=== PATIENT | female | born 2000 | race Caucasian/White ===

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

== ENCOUNTER 2020-05-05 19:16 | Emergency (ER) | payer BC, SELFPAY ==
[2020-05-05 19:29] VITALS: BP 145/91; PULSE 90; RESP 19; TEMP 36.9; O2SAT 98; BMI 40.1
--- NOTE | 2020-05-05 19:38 | HMH.EDUTC ---
[facility] [place] Disposition Clinical Impression: Exposure to COVID-19 virus Disposition: Home, Self-Care Condition on Discharge: Good Instructions: Preventing the Spread of Coronavirus Discharge Instructions Additional Instructions: You have been tested for COVID19. Please isolate yourself until results have been received. Referrals: Amy Whitten [Primary Care Provider] - Time of Disposition: 19:40 Medical Decision Making - Abdon Inquiry Pt receiving controlled substance: No Vital Signs: 05/05/20 19:29 Temperature 98.5 F Temperature Source Oral Pulse Rate [Right Brachial] 90 Respiratory Rate 19 Blood Pressure [Right Arm] 145/91 H Blood Pressure Mean [Right Arm] 109 Blood Pressure Source [Right Arm] Automatic Cuff Blood Pressure Position [Right Arm] Sitting 02 Sat by Pulse Oximetry 98 Oxygen Delivery Method Room Air Orders (Tests/Meds): ORDERS Category Date Time Status Coronavirus 19 Swab (OUTPT) Routine Lab 05/05/20 19:30 Received [facility] HPI - General Stated complaint: Covid test, not feeling well Time Seen by Provider: 05/05/20 19:38 Mode of Arrival: Ambulatory Source of Information: Patient Limitations: No Limitations Description of Symptoms (Recalled from Triage Doc. by RN): PATIENT C/O SORE THROAT, HEADACHE, NAUSEA, AND LOSS OF TASTE/SMELL X 1 WEEK HEENT Symptoms (Recalled from RN notes): Yes Resp Symptoms (Recalled from RN notes): No Skin Symptoms (Recalled from RN notes): No MS Symptoms (Recalled from RN notes): No Functional Status (Recalled from RN notes): WNL - History of Present Illness Provider Complaint: Sore throat, headache, cough, malaise, body aches X 4-5 days. Loss of taste and smell today. 2 friends tested positive for COVID19 earlier today. Onset (ago): day(s) (5) Location: head Relieving factors: none Exacerbating factors: none Associated symptoms: denies other symptoms Treatments prior to arrival: none - Related Data Home Medications Medication Instructions Recorded Confirmed citalopram 40 mg tablet PO 90 Days #90 tab 10/30/18 02/24/19 hydroxyzine pamoate 50 mg capsule PO 90 Days #360 cap 10/30/18 02/24/19 metformin 500 mg tablet,extended PO 90 Days #90 tab 10/30/18 02/24/19 release 24 hr norethindrone 1 mg-ethin. PO 84 Days #84 cap 10/30/18 02/24/19 estradiol 20 mcg (24)-iron 75 mg (4) capsule Allergies Allergy/AdvReac Type Severity Reaction Status Date / Time No Known Allergies Allergy Verified 05/05/20 19:35 - Worker's Comp Is this a Worker's Comp case?: No H History - Hepatitis A Screen Drug use history?: No High risk sexual behaviors?: No History of sexually transmitted infection?: No Currently employed?: No Childcare worker?: No Do you have indoor plumbing?: Yes Do you have electricity?: Yes Attestation statement:: This patient has been screened for Hepatitis A risk factors. I have reviewed the patient's past medical history: Yes Medical History: Reports:: Anxiety, Depression Laterality Cases: Bilateral: Tonsillectomy - Social History Smoking Status: Never smoker Alcohol Intake: never Occupational Status: other Housing: house Household Members: family - Psychiatric History Pschychiatric History:: Reports:: Anxiety, Depression Family Hx:: Diabetes, Cancer, Hypertension ROS Obtained: Yes All systems reviewed & no additional complaints - Constitutional Constitutional: Reports body ache, Reports chills, Reports fever(s), Reports headache(s), Reports malaise - Eyes Eyes: Denies eye discharge - ENT Ears, Nose, Mouth, and Throat: Denies otalgia, Denies nasal discharge, Reports sore throat - Respiratory Respiratory: Yes cough, Yes dyspnea - Gastrointestinal Gastrointestingal: Denies: loose stools, vomiting Physical Exam - General General appearance: alert, in no apparent distress - Head Head exam: atraumatic, normocephalic, normal inspection - Eye Eye exam: Present: normal appearance, PERRL, EOMI
[2020-05-05 19:44] VITALS: BP 145/91; PULSE 90; RESP 19; TEMP 36.9; O2SAT 98
--- NOTE | 2020-05-05 22:17 | PC.NURSE ---
Lab called with positive test result. Dr. Mahajan notified, patient notified.
== END 2020-05-05 19:45 | disposition home or self-care (01) ==
PROVIDERS: Emergency Provider Physician Assistant; PCP Family Medicine
DX: Z20.828 Contact with and (suspected) exposure to other viral communicable diseases (principal); R51 Headache; J02.9 Acute pharyngitis, unspecified; R11.0 Nausea; F41.8 Other specified anxiety disorders
CPT/HCPCS: 99201; U0003

== ENCOUNTER 2021-08-05 08:57 | Emergency (ER) | payer SELFPAY ==
[2021-08-05 09:15] VITALS: BP 125/67; PULSE 65; RESP 18; TEMP 36.6; O2SAT 98; BMI 38.7
[2021-08-05 09:23] LABS: UTC Strep Screen (Rapid) Positive (Negative)
[2021-08-05 09:24] VITALS: BP 125/67; PULSE 65; RESP 18; TEMP 36.6
--- NOTE | 2021-08-05 09:28 | HMH.EDUTC ---
[facility] [place] Disposition Clinical Impression: Strep throat Disposition: Home, Self-Care Condition on Discharge: Good Instructions: Strep Throat, DI for Strep Throat Additional Instructions: Drink plenty of fluids. Take tylenol or ibuprofen for pain or fever. Take the medications as directed. Follow up with your regular doctor. GO TO THE ER FOR ANY WORSENING SYMPTOMS Throw your tooth brush away and get a new one. Prescriptions: Brompheniramine/Pseudoephed/Dm [Bromfed Dm Cough Syrup] 5 ml PO Q6HP PRN #240 ml PRN Reason: Cough Transmission Status: Received by [id number] Amoxicillin [Amoxicillin 500mg Tab] 500 mg PO TID 10 Days #30 tab Transmission Status: Received by [facility]/pharmacy #[id number] predniSONE [Deltasone 10mg tablet] 10 mg PO BID 3 Days #6 tab Transmission Status: Received by [facility]/pharmacy #[id number] Referrals: Amy Whitten [Primary Care Provider] - Forms: Work/School Release Time of Disposition: 09:38 Medical Decision Making - Medical Records Medical records reviewed: No: I reviewed the patient's medical records. - Abdon Inquiry Pt receiving controlled substance: No Vital Signs: 08/05/21 09:15 08/05/21 09:24 Temperature 97.9 F 97.9 F Temperature Source Oral Pulse Rate 65 Pulse Rate [Left] 65 Respiratory Rate 18 18 Blood Pressure 125/67 Blood Pressure [Right Arm] 125/67 Blood Pressure Mean [Right Arm] 86 02 Sat by Pulse Oximetry 98 - Lab Data Lab results reviewed: Yes: I reviewed the patient's lab results. Lab Results 08/05/21 09:22: Strep Scn Rapid Clinic Positive A [facility] [place] HPI - General Stated complaint: stuffy nose,headache Time Seen by Provider: 08/05/21 09:28 Mode of Arrival: Ambulatory Source of Information: Patient Limitations: No Limitations Description of Symptoms (Recalled from Triage Doc. by RN): pt c/o a stuffy nose, cough, sore throat, n/v and fatigue. ongoing since 07/03. HEENT Symptoms (Recalled from RN notes): Yes (nasal congestion and sore throat) Resp Symptoms (Recalled from RN notes): Yes (cough) Skin Symptoms (Recalled from RN notes): No MS Symptoms (Recalled from RN notes): No Functional Status (Recalled from RN notes): fatigue - History of Present Illness Provider Complaint: She c/o sore throat on an off for the past 1 month. For the past 2 days she has had sinus congestion and a dry cough. - Related Data Home Medications Medication Instructions Recorded Confirmed citalopram 40 mg tablet PO 90 Days #90 tab 10/30/18 02/24/19 hydroxyzine pamoate 50 mg capsule PO 90 Days #360 cap 10/30/18 02/24/19 metformin 500 mg tablet,extended PO 90 Days #90 tab 10/30/18 02/24/19 release 24 hr norethindrone 1 mg-ethin. PO 84 Days #84 cap 10/30/18 02/24/19 estradiol 20 mcg (24)-iron 75 mg (4) capsule Previous Rx's Medication Instructions Recorded Amoxicillin [Amoxicillin 500mg Tab] 500 mg PO TID 10 Days #30 tab 08/05/21 Brompheniramine/Pseudoephed/Dm 5 ml PO Q6HP PRN #240 ml 08/05/21 [Bromfed Dm Cough Syrup] predniSONE [Deltasone 10mg tablet] 10 mg PO BID 3 Days #6 tab 08/05/21 Allergies Allergy/AdvReac Type Severity Reaction Status Date / Time No Known Allergies Allergy Verified 05/05/20 19:35 - Worker's Comp Is this a Worker's Comp case?: No [facility] History - Hepatitis A Screen Drug use history?: No High risk sexual behaviors?: No History of sexually transmitted infection?: No Currently employed?: No Childcare worker?: No Do you have indoor plumbing?: Yes Do you have electricity?: Yes Attestation statement:: This patient has been screened for Hepatitis A risk factors. I have reviewed the patient's past medical history: Yes Medical History: Reports:: Anxiety, Depression Laterality Cases: Bilateral: Tonsillectomy - Social History Smoking Status: Never smoker Alcohol Intake: never Occupational Status: other Housing: house Household Members: family - Psychiatric History Pschychiatric History:: Repor
== END 2021-08-05 09:54 | disposition home or self-care (01) ==
PROVIDERS: Emergency Provider Nurse Practitioner Family; PCP Family Medicine
DX: J02.0 Streptococcal pharyngitis (principal)
CPT/HCPCS: 87880; 99202; G0463

== ENCOUNTER 2024-04-27 07:49 | Emergency (ER) | payer BC, SELFPAY ==
[2024-04-27 07:50] VITALS: BP 168/97; PULSE 79; RESP 18; TEMP 36.4; O2SAT 100; BMI 29.2
--- NOTE | 2024-04-27 07:57 | PC.NURSE ---
dr maldonado at bedside
[2024-04-27 08:00] VITALS: BP 149/88; PULSE 75; O2SAT 100
--- NOTE | 2024-04-27 08:00 | ED_ITS ---
Discharge Plan Disposition Patient Disposition: Home, Self-Care Condition: Good Prescriptions Prescriptions: New sucralfate 100 mg/mL suspension 10 ml PO QID 7 Days Qty: 280 0RF omeprazole 20 mg capsule,delayed release(DR/EC) 20 mg PO DAILY 14 Days Qty: 14 0RF No Action citalopram 40 mg tablet PO 90 Days Qty: 90 hydroxyzine pamoate 50 mg capsule PO 90 Days Qty: 360 metformin 500 mg tablet extended release 24 hr PO 90 Days Qty: 90 norethindrone-e.estradiol-iron 1 mg-20 mcg (24)/75 mg (4) capsule PO 84 Days Qty: 84 prednisone 10 MG tablet 10 mg PO BID 3 Days Qty: 6 0RF amoxicillin 500 MG tablet 500 mg PO TID 10 Days Qty: 30 0RF gccvbpnyruhoyxl-ktivzpnyx-CQ 118 ML syrup 5 ml PO Q6HP PRN (Reason: Cough) Qty: 240 0RF Referrals Follow up/Referrals: Amy Westbrook MD [Primary Care Provider] - See instructions Activity Restrictions/Add. Instructions Additional Instructions/Restrictions: You were evaluated in the ER. You are appropriate for discharge at this time. Take the prescribed sucralfate and omeprazole as directed. Drink plenty of water. Make an appointment with your primary care physician for reevaluation in a few days. If you continue having persistent symptoms, they may refer you to GI for a scope/follow-up. Return to the ER with new, worsening, or otherwise concerning symptoms. Clinical Impressions Clinical Impression: Epigastric abdominal pain Instructions Patient Instructions: DI for Acute Abdominal Pain Print Language Print Language: Citizen Of [place] Discharge ED Provider: Елена Stapleton General Adult HPI General Chief complaint: Abdominal Pain Stated complaint: abd pain vomiting Time Seen by Provider: 04/27/24 07:54 History of Present Illness HPI narrative: 23-year-old female who takes daily control but no other medications at this time presents to the ER for concerns of epigastric pain. Patient states she woke up with a sharp burning sensation and points to the epigastric region of her stomach. She states she has mild nausea but has not had any vomiting. No diarrhea or other abdominal symptoms. No chest pain or difficulty breathing, no fevers or other associated symptoms at this time. Patient does not report a history of reflux or heartburn. She took Zofran this morning without relief of symptoms. Related Data Home Medications ?Medication ?Instructions ?Recorded ?Confirmed citalopram 40 mg tablet PO 90 days #90 tabs 10/30/18 02/24/19 hydroxyzine pamoate 50 mg capsule PO 90 days #360 caps 10/30/18 02/24/19 metformin 500 mg tablet,extended PO 90 days #90 tabs 10/30/18 02/24/19 release 24 hr norethindrone 1 mg-ethin. PO 84 days #84 caps 10/30/18 02/24/19 estradiol 20 mcg (24)-iron 75 mg (4) capsule Previous Rx's ?Medication ?Instructions ?Recorded amoxicillin 500 mg tablet 500 mg PO TID 10 days #30 tabs 08/05/21 ngzyrlzjxwubzox-nstidtrbjhbbccy-AD 5 ml PO Q6HP PRN Cough #240 mL 08/05/21 2 mg-30 mg-10 mg/5 mL oral syrup prednisone 10 mg tablet 10 mg PO BID 3 days #6 tabs 08/05/21 omeprazole 20 mg capsule,delayed 20 mg PO DAILY 14 days #14 caps 04/27/24 release sucralfate 100 mg/mL oral 10 ml PO QID 7 days #280 mL 04/27/24 suspension Allergies Allergy/AdvReac Type Severity Reaction Status Date / Time No Known Allergies Allergy Verified 05/05/20 19:35 [facility] Disclaimer: The information contained in this section may have been updated after the patient was seen, as this information can be updated by other users. Social History Smoking Status: Never smoker alcohol intake: never current occupational status: other Travel in the last 8 weeks: None household members: family housing: house ROS Obtained: Yes All systems reviewed & no additional complaints except as documented Gastrointestinal Gastrointestingal: Reports abdominal pain and nausea; Denies diarrhea or vomiting Physical Exam General General appearance: alert and in no apparent distress Head Head exam: atraumatic and normocephalic Eye Eye exam: Present PERRL and EOMI ENT ENT exam: Present mucous membranes moist Neck Neck exam: Present normal inspection and full ROM Chest Chest inspection: Present symmetric chest wall rise Respiratory Respiratory exam: Present normal lung sounds bilaterally; Absent respiratory distress, wheezes or stridor Cardiovascular Cardiovascular exam: Present regular rate and normal rhythm Abdominal Exam Abdominal exam: Present soft and tenderness; Absent distention, guarding, rebound or rigidity Abdominal tenderness: Present epigastrium and mild Extremities Exam Extremities exam: Present full ROM Back Exam Back exam: Absent CVA tenderness (R) or CVA tenderness (L) Neurological Exam Neurological exam: Present alert and oriented X3; Absent motor sensory deficit Psychiatric Psychiatric exam: Present normal affect and normal mood Skin Skin exam: Present warm and dry Medical Decision Making Medical Records Medical records reviewed: Yes I reviewed the patient's medical records. MR Comment: Patient has previously been evaluated in our system for exposure to COVID, strep throat, dermatitis Abdon Inquiry Pt receiving controlled substance: No Vital Signs: 04/27/24 07:50 04/27/24 08:00 04/27/24 08:30 Temperature 97.6 F Temperature Source Oral Pulse Rate 75 66 Pulse Rate [Radial] 79 Respiratory Rate 18 Blood Pressure 149/88 H 142/95 H Blood Pressure [Right Arm] 168/97 H Blood Pressure Mean [Right Arm] 120 Blood Pressure Source [Right Arm] Automatic Cuff Blood Pressure Position [Right Arm] Sitting 02 Sat by Pulse Oximetry 100 100 98 Oxygen Delivery Method Room Air Room Air Lab Data Lab Results 04/27/24 08:00: WBC 8.4, RBC 5.05, Hgb 16.0, Hct 45.6, MCV 90.4, MCH 31.8 H, MCHC 35.2, RDW 14.2, Plt Count 317, MPV 7.8, Neut % (Auto) 45.2, Lymph % (Auto) 46.1, [place] % (Auto) 6.4, Eos % (Auto) 1.5, Baso % (Auto) 0.9, Neut # (Auto) 3.8, Lymph # (Auto) 3.9, [place] # (Auto) 0.5, Eos # (Auto) 0.1, Baso # (Auto) 0.1, Sodium 141, Potassium 3.9, Chloride 108 H, Carbon Dioxide 26, Anion Gap 10.9, BUN 13, Creatinine 0.60, Estimated Creat Clear 219, Estimated GFR 124, Est GFR ( Amer) 150, Glucose 115 H, Calcium 9.4, Total Bilirubin 0.7, AST 46 H, ALT 42, Alkaline Phosphatase 53, Troponin I < 0.01, Total Protein 8.1, Albumin 4.5, Globulin 3.6 H, Albumin/Globulin Ratio 1.3, Lipase 103, Serum HCG, Qual Negative 04/27/24 08:58: Urine Color Yellow, Urine Appearance Clear, Urine pH 6.0, Ur Specific [place] 1.025, Urine Protein Negative, Urine Glucose (UA) Negative, Urine Ketones Negative, Urine Blood Negative, Urine Nitrate Negative, Urine Bilirubin Negative, Urine Urobilinogen 0.2, Ur Leukocyte Esterase Trace, Urine RBC None, Urine WBC Occasional, Ur Squamous Epith Cells 3-5, Urine Bacteria Trace 04/27/24 08:00 04/27/24 08:00 Orders (Tests/Meds): ED MEDICATIONS Discontinued Medications Generic Name Dose Route Start Last Admin Trade Name Freq PRN Reason Stop Dose Admin Belladonna Alkaloids 60 ml 04/27/24 07:59 04/27/24 08:04 Belladonna Alkaloids 60 Ml Ml PO 04/27/24 08:00 60 ml ONCE ONE Administration Ondansetron HCl 4 mg 04/27/24 07:55 04/27/24 09:06 Ondansetron 4mg/2ml Vial IV 04/27/24 07:56 Not Given ONCE ONE ORDERS Category Date Time Status CBC w/Auto Diff [Complete Blood Count Auto Diff] Stat Lab 04/27/24 08:00 Completed CMP [Comprehensive Metabolic Panel] Stat Lab 04/27/24 08:00 Completed HCG Qualitative, Serum Stat Lab 04/27/24 08:00 Completed Lipase Stat Lab 04/27/24 08:00 Completed Trop I [Troponin I] Stat Lab 04/27/24 08:00 Completed Troponin I Q3H Lab 04/27/24 11:00 Ordered Troponin I Q3H Lab 04/27/24 14:00 Ordered Urinalysis and Microscopic Stat Lab 04/27/24 08:58 Completed ECG Request Stat Y 04/27/24 07:55 Ordered HEART Score History (anamnesis): Slightly suspicious ECG: Normal Age: <45 years Risk factors: 1-2 risk factors Troponin: </= normal limit HEART Score: 1 Medical Decision Narrative: In summary, this 23-year-old female presents to the emergency department today with epigastric abdominal pain. On initial evaluation patient is hemodynamically stable, afebrile, mild tenderness to palpation in the epigastric region, nonacute abdomen, no other acute findings on exam. Differential diagnosis includes but is not limited to esophageal spasm, pancreatitis, I did consider ACS and though I have lower suspicion for this ECG and initial troponin were ordered. Also considered possibility , UTI, biliary pathology however patient does not have right upper quadrant tenderness and symptom history is not consistent with biliary colic. Based on these concerns, I ordered serum labs, ECG, urine study. ECG personally interpreted demonstrates normal sinus rhythm, rate 71, normal axis, normal NC and QTc, no STEMI. Patient received GI cocktail for treatment. Labs personally reviewed demonstrate no leukocytosis or anemia, platelets normal, CMP without actionable abnormality, lipase normal at 103 reassuring against pancreatitis, test negative, initial troponin undetectably low at less than 0.01, UA negative for findings of infection. On reassessment shortly after receiving GI cocktail patient has had significant improvement of symptoms. This in conjunction with patient's reassuring workup and her ability to tolerate oral intake indicates she is appropriate for discharge at this time. I prescribed sucralfate and omeprazole for ongoing management of symptoms. Patient was given instructions on symptomatic management, follow up instructions, and return precautions for the emergency department. Patient indicated understanding and was discharged in stable condition. Critical Care Critical Care Time Critical Care Time: No
[2024-04-27] MEDS: BELLADONNA ALKALOIDS 60 ML ML PO (08:04)
--- NOTE | 2024-04-27 08:12 | ECG_ITS ---
APPROVED REPORT Exam: Resting ECG HR:71 bpm ECG Measurements Heart Rate 71 AXES GA 139 P 41 QRSd 94 QRS 72 QT 398 T 65 QTc 420 Conclusion SINUS RHYTHM NORMAL ECG Electronically signed by : MACIE CASTAÑEDA, 04/28/2024 07:31:29
[2024-04-27 08:25] LABS: Basophils # 0.1 K/mm3 (0-0.2); Basophils % 0.9 % (0.1-2.0); Eosinophils # 0.1 K/mm3 (0.0-0.4); Eosinophils % 1.5 % (0.1-12.0); Hematocrit 45.6 % (37.0-47.0); Lymphocytes # 3.9 K/mm3 (0.7-4.5); Lymphocytes % 46.1 % (10-50); Mean Corpuscular HGB Conc 35.2 g/dL (31.8-35.4); Mean Corpuscular Hemoglobin 31.8 pg (27.0-31.2); Mean Corpuscular Volume 90.4 fl (81-99); Mean Platelet Volume 7.8 fl (7.4-10.4); Monocytes # 0.5 K/mm3 (0.1-1.0); Monocytes % 6.4 % (1.7-9.3); Neutrophils # 3.8 K/mm3 (1.8-7.8); Neutrophils % 45.2 % (37.0-80.0); Platelet Count 317 K/mm3 (142-424); Red Blood Count 5.05 M/mm3 (4.20-5.40); Red Cell Distribution Width 14.2 % (11.5-17.5); White Blood Count 8.4 K/mm3 (4.8-10.8)
[2024-04-27 08:30] VITALS: BP 142/95; PULSE 66; O2SAT 98
[2024-04-27 08:30] LABS: Alanine Aminotransferase 42 U/L (12-78); Albumin Level 4.5 g/dl (3.5-5.0); Albumin/Globulin Ratio 1.3 (1.1-1.8); Alkaline Phosphatase 53 U/L (38-126); Anion Gap 10.9 mEq/L (5-15); Aspartate Amino Transferase 46 U/L (14-36); Bilirubin,Total 0.7 mg/dl (0.2-1.3); Blood Urea Nitrogen 13 mg/dl (7-17); Calcium 9.4 mg/dl (8.4-10.2); Carbon Dioxide 26 mmol/L (22.0-30.0); Chloride 108 mmol/L (98-107); Creatinine Clearance Estimated 219 mL/min (50-200); Estimated Glomerular Filt Rate 124 ml/min (>60); GFR (African American) 150 ML/MIN (>60); Globulin 3.6 g/dL (1.3-3.2); Glucose 115 mg/dl (74-100); Lipase 103 U/L (23-300); Potassium 3.9 mmoL/L (3.5-5.1); Sodium 141 mmol/L (136-145); Total Protein,Serum 8.1 g/dl (6.3-8.2)
[2024-04-27 08:31] LABS: HCG Qualitative, Serum Negative (Negative)
--- NOTE | 2024-04-27 08:39 | PC.NURSE ---
DR CASTAÑEDA AT BEDSIDE TO REEVALUATE PT
[2024-04-27 08:46] LABS: Troponin I < 0.01 ng/ml (0.00-0.034)
[2024-04-27 09:00] LABS: Microscopic, Urine URINE MICROSCOPIC (MICROSCOPIC)
[2024-04-27 09:03] LABS: Appearance,Urine CLEAR (Clear); Bilirubin,Urine Negative (Negative); Blood, Urine Negative (Negative); Color,Urine YELLOW (Yellow); Glucose,Urine (UA) Negative (Negative); Ketones,Urine Negative (Negative); Leukocyte Esterase,Urine TRACE (Negative); Nitrate,Urine Negative (Negative); Protein,Urine Negative (Negative); Specific Gravity, Urine 1.025 (1.005-1.030); Urobilinogen,Urine 0.2 EU/dl (0.2)
--- NOTE | 2024-04-27 09:12 | PC.NURSE ---
ROUNDED ON PT, FEELING MUCH BETTER. NO NEEDS AT THIS TIME. CALL LIGHT WITHIN REACH. FAMILY AT BEDSIDE
[2024-04-27 09:13] LABS: Bacteria,Urine Trace /lpf; WBC,Urine Occasional #/hpf (0-3)
[2024-04-27 09:16] VITALS: BP 139/87; PULSE 65; RESP 17; TEMP 36.4; O2SAT 99
== END 2024-04-27 09:19 | disposition home or self-care (01) ==
PROVIDERS: Emergency Provider Emergency Medicine; PCP Family Medicine
DX: R10.13 Epigastric pain (principal); R11.0 Nausea
CPT/HCPCS: 80053; 81001; 83690; 84484; 84703; 85025; 93005; 96374; 99284

== ENCOUNTER 2024-05-14 11:15 | Emergency (ER) | payer BC, SELFPAY ==
[2024-05-14 11:32] LABS: UTC Strep Screen (Rapid) Negative (Negative)
[2024-05-14 11:42] VITALS: BP 145/77; PULSE 90; RESP 18; TEMP 36.8; O2SAT 100; BMI 28.9
--- NOTE | 2024-05-14 11:49 | EXP.UTC ---
Discharge Plan Disposition Patient Disposition: Home, Self-Care Condition: Good Prescriptions Prescriptions: New pseudoephedrine HCl [Sudafed 12 Hour] 120 mg tablet extended release 120 mg PO Q12H PRN (Reason: nasal congestion) Qty: 20 0RF benzonatate 100 mg capsule 100 mg PO TID PRN (Reason: cough) Qty: 30 0RF amoxicillin-pot clavulanate 875-125 mg Tablet 1 tab PO Q12H Qty: 14 0RF No Action citalopram 40 mg tablet PO 90 Days Qty: 90 hydroxyzine pamoate 50 mg capsule PO 90 Days Qty: 360 metformin 500 mg tablet extended release 24 hr PO 90 Days Qty: 90 norethindrone-e.estradiol-iron 1 mg-20 mcg (24)/75 mg (4) capsule PO 84 Days Qty: 84 prednisone 10 MG tablet 10 mg PO BID 3 Days Qty: 6 0RF amoxicillin 500 MG tablet 500 mg PO TID 10 Days Qty: 30 0RF hkclfsbemjgxklx-fhqcofvxp-TT 118 ML syrup 5 ml PO Q6HP PRN (Reason: Cough) Qty: 240 0RF sucralfate 100 mg/mL suspension 10 ml PO QID 7 Days Qty: 280 0RF omeprazole 20 mg capsule,delayed release(DR/EC) 20 mg PO DAILY 14 Days Qty: 14 0RF Referrals Follow up/Referrals: Amy Westbrook MD [Primary Care Provider] - See instructions Activity Restrictions/Add. Instructions Additional Instructions/Restrictions: *Monitor Temp, Over the counter Motrin or Tylenol as directed/as needed Tylenol every 4 hours and Motrin every 6 hours (as long as your family doctor has told you that you can take it) for fever or pain. and straight to ER if unable to lower temp less than 101.0 after medication given *Warm salt water gargles may help to soothe the throat *Throat Lozenges? *Warm fluids like tea with honey may help to soothe the throat? *Sleep elevated *Humidifier/Vaporizer *Flonase 2 sprays in each nostril daily but be aware that it may take 2-3 days before you notice improvement Your throat swab was sent for culture. Those results are typically sent to your primary care. Be sure to follow up in 2-3 days with your family doctor/primary care physician if no improvement so they can review those result and treat if necessary. If you don?t have a primary care doctor, I recommend you get one but in the mean time, you will have to return to a walk in clinic Follow up IMMEDIATELY for new or worsening symptoms or no Noticeable improvement over the next 48-72 hours. 911 for difficulty breathing or swallowing Clinical Impressions Clinical Impression: Sinusitis Stand Alone Forms Stand Alone Forms: Work/School Release Instructions Patient Instructions: DI for Sinusitis, Sinusitis Print Language Print Language: Mohawk Discharge ED Provider: Keiry Dawkins [facility] [place] HPI General Stated complaint: congestion, sore throat, ear pain, cough Mode of Arrival: Ambulatory Source of Information: Patient Limitations: No Limitations Time Seen by Provider: 05/14/24 11:49 Description of Symptoms (Recalled from Triage Doc. by RN): Reports congestion,nausea, pressure in head and ears. HEENT Symptoms (Recalled from RN notes): Yes Resp Symptoms (Recalled from RN notes): No Skin Symptoms (Recalled from RN notes): No MS Symptoms (Recalled from RN notes): No Functional Status (Recalled from RN notes): wnl History of Present Illness Provider Complaint: Patient states that she has been having sore throat, sinus pain and pressure, pain and pressure in her ears and over all not feeling well Feels like she may have a bad sinus infection Related Data Home Medications ?Medication ?Instructions ?Recorded ?Confirmed citalopram 40 mg tablet PO 90 days #90 tabs 10/30/18 02/24/19 hydroxyzine pamoate 50 mg capsule PO 90 days #360 caps 10/30/18 02/24/19 metformin 500 mg tablet,extended PO 90 days #90 tabs 10/30/18 02/24/19 release 24 hr norethindrone 1 mg-ethin. PO 84 days #84 caps 10/30/18 02/24/19 estradiol 20 mcg (24)-iron 75 mg (4) capsule Previous Rx's ?Medication ?Instructions ?Recorded amoxicillin 500 mg tablet 500 mg PO TID 10 days #30 tabs 08/05/21 scyjtmiifwfdjpt-vpharozccigefjt-TY 5 ml PO Q6HP PRN Cough #240 mL 08/05/21 2 mg-30 mg-10 mg/5 mL oral syrup prednisone 10 mg tablet 10 mg PO BID 3 days #6 tabs 08/05/21 omeprazole 20 mg capsule,delayed 20 mg PO DAILY 14 days #14 caps 04/27/24 release sucralfate 100 mg/mL oral 10 ml PO QID 7 days #280 mL 04/27/24 suspension amoxicillin 875 mg-potassium 1 tab PO Q12H #14 tabs 05/14/24 clavulanate 125 mg tablet benzonatate 100 mg capsule 100 mg PO TID PRN cough #30 caps 05/14/24 pseudoephedrine HCl 120 mg 120 mg PO Q12H PRN nasal 05/14/24 tablet,extended release (Sudafed congestion #20 tabs 12 Hour) Allergies Allergy/AdvReac Type Severity Reaction Status Date / Time No Known Allergies Allergy Verified 05/05/20 19:35 Worker's Comp Is this a Worker's Comp case?: No [facility] Disclaimer: The information contained in this section may have been updated after the patient was seen, as this information can be updated by other users. Social History Smoking Status: Never smoker alcohol intake: never current occupational status: other Travel in the last 8 weeks: None household members: family housing: house ROS Obtained: Yes All systems reviewed & no additional complaints except as documented and Yes Systems reviewed as appropriate & no additional complaints except as documented Constitutional Constitutional: Reports system reviewed and no additional complaints, except as documented and Reports as per HPI ENT Ears, Nose, Mouth, and Throat: Reports system reviewed and no additional complaints, except as documented, Reports as per HPI, Reports otalgia, Reports sinus pain and Reports sinus pressure Cardiovascular Cardiovascular: Reports system reviewed and no additional complaints, except as documented and Reports as per HPI Respiratory Respiratory: Reports system reviewed and no additional complaints, except as documented, Reports as per HPI and Reports cough Gastrointestinal Gastrointestingal: Reports system reviewed and no additional complaints, except as documented and as per HPI Physical Exam General General appearance: alert and in no apparent distress ENT ENT exam: Present mucous membranes moist Expanded ENT Exam Nose exam: Present sinus tenderness Throat exam: Present other (pharyngeal erythema noted with PND) Respiratory Respiratory exam: Present normal lung sounds bilaterally; Absent respiratory distress or wheezes Cardiovascular Cardiovascular exam: Present regular rate, normal rhythm and normal heart sounds Abdominal Exam Abdominal exam: Present soft and normal bowel sounds; Absent distention or tenderness Neurological Exam Neurological exam: Present alert, oriented X3 and normal gait Medical Decision Making [place] Inquiry Pt receiving controlled substance: No [place] was queried for this patient: No Vital Signs: 05/14/24 11:42 Temperature 98.3 F Temperature Source Oral Pulse Rate [Radial] 90 Respiratory Rate 18 Blood Pressure [Right Arm] 145/77 H Blood Pressure Mean [Right Arm] 99 Blood Pressure Source [Right Arm] Automatic Cuff Blood Pressure Position [Right Arm] Sitting 02 Sat by Pulse Oximetry 100 Oxygen Delivery Method Room Air Lab Data Lab results reviewed: Yes I reviewed the patient's lab results. Lab Results 05/14/24 11:31: Strep Scn Rapid Clinic Negative Orders (Tests/Meds): ORDERS Category Date Time Status Strep Screen Confirmation Stat Micro 05/14/24 11:31 Received
[2024-05-14 12:10] VITALS: BP 145/77; PULSE 90; RESP 18; TEMP 36.8; O2SAT 100
== END 2024-05-14 12:11 | disposition home or self-care (01) ==
PROVIDERS: Emergency Provider Nurse Practitioner; PCP Family Medicine
DX: J01.90 Acute sinusitis, unspecified (principal); R07.0 Pain in throat; H92.03 Otalgia, bilateral
CPT/HCPCS: 87880; 99212; 99214; G0463